=== PATIENT | female | born 1965 | race Caucasian/White ===

== ENCOUNTER → 2021-03-08 | Outpatient (CLI) | payer OTHER ==
[~2021-03-08] MED LIST: HYDR12.575 PO; LORA10CA PO; METO-313 PO; PANT20TA2 PO; TRAV5DRO EACHEYE
== END ==
LOC: LAB 09:36
PROVIDERS: ATTEND Internal Medicine Gastroenterology
DX: Z01.812 Encounter for preprocedural laboratory examination (principal); Z20.822 Contact with and (suspected) exposure to COVID-19
CPT/HCPCS: U0003; U0005

== ENCOUNTER → 2021-03-09 | Day surgery (SDC) | payer OTHER ==
[~2021-03-09] MED LIST changes: +IV RINGERS,LACTATED 1000ML 1,000 ML IV ONE; +PROPOFOL 10 MG/ML (20ML) VIAL. IV ONE
[2021-03-09 09:09] VITALS: BP 129/63
--- NOTE | 2021-03-13 12:07 | PATHOLOGY ---
[facility] Accession Number: [id number] . 01 Material submitted: . PART A: rectum - RECTAL POLYP BIOPSY PART B: sigmoid colon - SIGMOID POLYP BIOPSY PART C: colon - ASCENDING COLON POLYP BIOPSY X2. Modifiers: ascending, X2 . 01 Clinical history: . SCREENING COLONOSCOPY FAMILY HISTORY OF COLON CANCER, HIGH RISK INDIVIDUAL . 02 Diagnosis: A. Large bowel "rectal polyp", biopsy: - Hyperplastic polyp; negative for dysplasia and malignancy. . B. Large bowel "sigmoid polyp", biopsy: - Hyperplastic polyp; negative for dysplasia and malignancy. . C. Large bowel "ascending colon polyp x2", biopsy: - Tubular adenoma; negative for high-grade dysplasia and malignancy. - Sessile serrated adenoma/polyp; negative for high-grade dysplasia and malignancy . (REBECCA:slime; 03/12/2021) [employer] [facility] 03/13/2021 [facility] . 02 Electronically signed: . Maliha Montgomery MD, Pathologist NPI- [id number] . 01 Gross description: . A. The specimen is received in formalin, labeled "Ashley Asya, rectal polyp biopsy". Received is a segment of pale choe tissue measuring 0.3 cm in maximum dimensions. The specimen is submitted entirely in cassette A1. . B. The specimen is received in formalin, labeled "Ashley Asya, sigmoid polyp biopsy". Received is a segment of pale choe tissue measuring 0.3 cm in maximum dimensions. The specimen is submitted entirely in cassette B1. . C. The specimen is received in formalin, labeled "Ashley Asya, ascending colon polyp biopsy". Received are five segments of pale choe tissue ranging in size from 0.3-0.4 cm in maximum dimensions. The specimen is submitted entirely in cassette C1. (CAA; 03/11/2021) QAC/QAC 03/11/2021 1311 Local . 02 Pathologist provided ICD-10: K63.5, D12.2 . 02 CPT . 979967, 956343, [id number] Specimen Comment: A courtesy copy of this report has been sent to [phone], [phone] Specimen Comment: [phone] Specimen Comment: Report sent to / DR DUARTE Performed at: 01 [facility] [address] [place] [id number] MD Arvind Morse MD Phone: [phone] Performed at: [address] [id number] MD Dustin Shah MD Phone: [phone]
== END | disposition home or self-care (01) ==
LOC: SURG 07:29 → EDUNIT# 08:30
PROVIDERS: ATTEND Internal Medicine Gastroenterology
DX: Z12.11 Encounter for screening for malignant neoplasm of colon (principal); K64.8 Other hemorrhoids; K63.89 Other specified diseases of intestine; D12.2 Benign neoplasm of ascending colon; K21.9 Gastro-esophageal reflux disease without esophagitis; I10 Essential (primary) hypertension; G47.30 Sleep apnea, unspecified; E66.9 Obesity, unspecified; M19.90 Unspecified osteoarthritis, unspecified site; Z90.49 Acquired absence of other specified parts of digestive tract; Z98.890 Other specified postprocedural states; Z79.899 Other long term (current) drug therapy; Z88.2 Allergy status to sulfonamides
CPT/HCPCS: 45380; 45385; 88305; J2704